=== PATIENT | female | born 2000 ===

== ENCOUNTER 2023-03-09 07:17 | Day surgery (SDC) | payer OTHER ==
[2023-03-09] MEDS ORDERED: IBU800 MG PO (14:14)
[2023-03-09] MEDS ORDERED: NEURONTIN300 MG PO (14:15)
== END 2023-03-09 16:30 | disposition home or self-care (01) ==
LOC: CIR.AMB 07:17
PROVIDERS: ATTEND Obstetrics & Gynecology Gynecology
DX: N83.8 Other noninflammatory disorders of ovary, fallopian tube and broad ligament (principal); R10.2 Pelvic and perineal pain; Z88.6 Allergy status to analgesic agent; Z20.822 Contact with and (suspected) exposure to COVID-19; Z88.8 Allergy status to other drugs, medicaments and biological substances